=== PATIENT | male | born 1950 | race Caucasian/White ===

== ENCOUNTER 2016-07-12 07:36 | Emergency (ER) | payer OTHER ==
--- NOTE | 2016-07-12 07:45 | UC ---
Respiratory Complaint HPI - HPI Summary HPI Summary: Cough w/ yellow sputum & chest congestion x3 weeks. 3 days ago, pt developed slight fever. Not improving . [ End ] - History of Current Complaint Stated Complaint: COUGH,CHEST CONGESTION Time Seen by Provider: 07/12/16 07:43 Hx Obtained From: Patient Onset/Duration: Gradual Onset Timing: Constant Severity Initially: Mild Severity Currently: Moderate Character: Cough: Productive Aggravating Factors: Exertion Alleviating Factors: Nothing Associated Signs And Symptoms: Positive: Negative, Nasal Congestion, Sinus Discomfort - Risk Factors Pulmonary Embolism Risk Factors: Negative - Allergies/Home Medications Allergies/Adverse Reactions: Allergies Allergy/AdvReac Type Severity Reaction Status Date / Time No Known Allergies Allergy Verified 07/12/16 07:42 Home Medications: Home Medications guaiFENesin LIQ* [Robitussin*] 10 ml PO Q6H PRN 07/12/16 [History Confirmed 05/29] PMH/Surg Hx/FS Hx/Imm Hx Previously Healthy: Yes Endocrine History Of: Denies: Diabetes Cardiovascular History Of: Reports: Hypertension Denies: Cardiac Disorders Respiratory History Of: Denies: COPD GI/ History Of: Denies: Gastroesophageal Reflux - Surgical History Surgical History: Yes Surgery Procedure, Year, and Place: groin node removed 40 years ago d/t "cat scratch fever" - Family History Known Family History: Positive: None - Social History Occupation: Retired Lives: With Family Substance Use Type: None Smoking Status (MU): Never Smoked Tobacco Review of Systems Constitutional: Fever, Fatigue Skin: Negative Eyes: Negative ENT: Negative Respiratory: Cough Cardiovascular: Negative Gastrointestinal: Negative Genitourinary: Negative Motor: Negative Neurovascular: Negative Musculoskeletal: Negative Neurological: Negative Psychological: Negative All Other Systems Reviewed And Are Negative: Yes Physical Exam Triage Information Reviewed: Yes Appearance: Well-Appearing, No Pain Distress, Well-Nourished Eye Exam: Normal ENT Exam: Normal Dental Exam: Normal Neck exam: Normal Neck: Positive: 1 Respiratory Exam: Normal Cardiovascular Exam: Normal Abdominal Exam: Normal Musculoskeletal Exam: Normal Neurological Exam: Normal Psychological Exam: Normal Skin Exam: Normal Respiratory Course/Dx - Course Course Of Treatment: Viral, do not start antibiotics unless sx worsen over the next 3-4 days - Differential Dx/Diagnosis Differential Diagnosis/HQI/PQRI: Bronchitis, Lower Resp Infection, Sinusitis Provider Diagnoses: Bronchitis Discharge - Discharge Plan Condition: Good Disposition: HOME Prescriptions: Amoxicillin/Clavulanate TAB* [Augmentin TAB 875*] 875 mg PO BID #20 tab Benzonatate [Benzonatate 200 MG CAP] 200 mg PO TID #20 cap Fluticasone Propionate (Nasal) [Clarispray] 50 mcg NA DAILY #1 spr LevoCETirizine TAB (NF) [Xyzal TAB (NF)] 5 mg PO DAILY #14 tab Patient Education Materials: Acute Bronchitis (ED) Referrals: Evelyn Galan MD [Primary Care Provider] - 3 Days Additional Instructions: As we discussed please use the levoceterizine , benzonatate cough pills and allergy nose spray for 3-4 days and if your symptoms worsen then you may start the antibiotics. If you do start these please also start probiotics as well.
[2016-07-12 07:48] VITALS: BP 123/73
== END 2016-07-12 08:23 | disposition home or self-care (01) ==
LOC: UCCORT 07:36
DX: J40 Bronchitis, not specified as acute or chronic (principal); I10 Essential (primary) hypertension
CPT/HCPCS: 99212; G0463

== ENCOUNTER 2017-01-03 09:41 | Emergency (ER) | payer OTHER ==
[2017-01-03 10:13] VITALS: BP 129/64
[2017-01-03] MEDS ORDERED: predniSONE TAB* 20 MG PO ONE (10:28)
--- NOTE | 2017-01-03 10:35 | UC ---
Respiratory Complaint HPI - HPI Summary HPI Summary: Started getting sick about 2 weeks ago with nasal kristine, st, cough. Saw PCP 10 days ago and was rx z-dima. Finished it 4 days ago but cough and wheezing continue. Denies fever or facial pain. No hx of COPD or respiratory hispitalization. - History of Current Complaint Chief Complaint: UCGeneralIllness Stated Complaint: COUGH,WHEEZING (JUST FINISHED ZPACK) Time Seen by Provider: 01/03/17 10:06 Hx Obtained From: Patient Onset/Duration: Gradual Onset, Lasting Weeks Timing: Constant Severity Initially: Moderate Severity Currently: Mild Character: Cough: Productive Aggravating Factors: Recumbent Position Alleviating Factors: Upright Position Associated Signs And Symptoms: Positive: Wheezing, URI, Nasal Congestion. Negative: Dyspnea, Fever, Chills - Risk Factors Pulmonary Embolism Risk Factors: Negative - Allergies/Home Medications Allergies/Adverse Reactions: Allergies Allergy/AdvReac Type Severity Reaction Status Date / Time No Known Allergies Allergy Verified 01/03/17 10:12 Home Medications: Home Medications Aspirin [Aspirin 81 MG TAB] 81 mg PO DAILY 01/03/17 [History Confirmed 01/03/17] PMH/Surg Hx/FS Hx/Imm Hx Endocrine History: Dyslipidemia - Surgical History Surgical History: Yes Surgery Procedure, Year, and Place: groin node removed 40 years ago d/t "cat scratch fever" - Family History Known Family History: Positive: Hypertension - Social History Lives: With Family Alcohol Use: Occasionally Substance Use Type: None Smoking Status (MU): Never Smoked Tobacco Review of Systems Constitutional: Negative Skin: Negative Eyes: Negative ENT: Sore Throat, Nasal Discharge, Sinus Congestion Respiratory: Cough Cardiovascular: Negative Gastrointestinal: Negative Genitourinary: Negative Motor: Negative Neurovascular: Negative Musculoskeletal: Negative Neurological: Negative Psychological: Negative Is Patient Immunocompromised?: No All Other Systems Reviewed And Are Negative: Yes Physical Exam Triage Information Reviewed: Yes Appearance: Well-Appearing, No Pain Distress, Well-Nourished Vital Signs: Initial Vital Signs Temp 98.5 F 01/03/17 10:07 Pulse 68 01/03/17 10:07 Resp 22 01/03/17 10:07 BP 129/64 01/03/17 10:07 Pulse Ox 97 01/03/17 10:07 Vital Signs Reviewed: Yes Eye Exam: Normal, Other - PERRL Eyes: Positive: Conjunctiva Clear, Other: - pt has arcus senillus bilat ENT: Positive: Hearing grossly normal, Nasal congestion, TMs normal. Negative: Nasal drainage, Tonsillar swelling, Tonsillar exudate Dental Exam: Normal Neck exam: Normal Neck: Positive: Supple, Nontender, No Lymphadenopathy Respiratory: Positive: Lungs clear, Normal breath sounds, Decreased breath sounds - bilat. Negative: Wheezing Cardiovascular Exam: Normal Cardiovascular: Positive: RRR, No Murmur Musculoskeletal Exam: Normal Neurological Exam: Normal Neurological: Positive: Alert Psychological Exam: Normal Skin Exam: Normal Diagnostic Evaluation - Laboratory O2 Sat by Pulse Oximetry: 97 Respiratory Course/Dx - Differential Dx/Diagnosis Provider Diagnoses: Bronchospasm. post-viral cough Discharge - Discharge Plan Condition: Stable Disposition: HOME Prescriptions: Albuterol HFA INHALER* [Ventolin HFA Inhaler*] 1 - 2 puff INH Q4H PRN #1 mdi PRN Reason: wheeze, cough Fluticasone HFA 220 mcg(NF) [Flovent HFA 220 Mcg(NF)] 1 puff INH BID #1 mdi Patient Education Materials: Bronchospasm (ED) Referrals: Evelyn Galan MD [Primary Care Provider] - Additional Instructions: POST-VIRAL COUGH: A very common cause of persistent cough is called "post-viral cough syndrome." During a viral infection, the virus can irritate your bronchial tubes. Then even after the infection is over, you may continue to cough. Your cough is left over from your recent viral infection. You do not show evidence of a continuing viral infection,bronchitis or pneumonia. You do not need antibiotics at this time. It may be helpful to use inhaled cool mist, throat lozenges, cough medication or bronchial inhalers to open up your bronchial tubes. We expect you will be improved in a week or two. Please get back to us if you have fever, chest pain, colored sputum, blood in the sputum, wheezing or shortness of breath.
== END 2017-01-03 10:40 | disposition home or self-care (01) ==
LOC: UCCORT 09:41
DX: J98.01 Acute bronchospasm (principal)
CPT/HCPCS: 99212; G0463; J7512

== ENCOUNTER 2017-04-16 08:22 | Emergency (ER) | payer OTHER ==
[2017-04-16 08:40] VITALS: BP 150/92
--- NOTE | 2017-04-16 08:56 | UC ---
General HPI - HPI Summary HPI Summary: 66 yo gentleman c/o last several days L back / upper leg achiness. This am awoke with rash left lower pelvis. No sob / cp. No palpitations. No fever / chills. No sore throat. No or GI c/o's. Did have chicken pox as a child. - History of Current Complaint Chief Complaint: UCSkin Stated Complaint: SKIN COMPLAINT Time Seen by Provider: 04/16/17 08:45 Hx Obtained From: Patient - Allergy/Home Medications Allergies/Adverse Reactions: Allergies Allergy/AdvReac Type Severity Reaction Status Date / Time No Known Allergies Allergy Verified 04/16/17 08:40 Home Medications: Home Medications Multiple Vitamins W/ Minerals [Preservision Areds 2 + Mu] 1 cap PO DAILY [History Confirmed 04/16/17] PMH/Surg Hx/FS Hx/Imm Hx Previously Healthy: Yes - Surgical History Surgical History: Yes Surgery Procedure, Year, and Place: groin node removed 40 years ago d/t "cat scratch fever" - Family History Known Family History: Positive: Hypertension - Social History Alcohol Use: Occasionally Substance Use Type: None Smoking Status (MU): Never Smoked Tobacco Review of Systems Constitutional: Negative Skin: Rash Eyes: Negative ENT: Negative Respiratory: Negative Cardiovascular: Negative Gastrointestinal: Negative Genitourinary: Negative Motor: Other - see hpi Neurovascular: Other - see hpi Musculoskeletal: Arthralgia Neurological: Negative Psychological: Negative Is Patient Immunocompromised?: No All Other Systems Reviewed And Are Negative: Yes Physical Exam Triage Information Reviewed: Yes Appearance: Well-Appearing, Well-Nourished Vital Signs: Initial Vital Signs Temp 98.3 F 04/16/17 08:28 Pulse 66 04/16/17 08:28 Resp 18 04/16/17 08:28 BP 150/92 04/16/17 08:28 Vital Signs Reviewed: Yes Eye Exam: Normal - grossly normal, no c/o's ENT Exam: Normal ENT: Positive: Pharynx normal Neck exam: Normal Neck: Positive: Supple Respiratory Exam: Normal Respiratory: Positive: Chest non-tender, Lungs clear, Normal breath sounds, No respiratory distress, No accessory muscle use Cardiovascular Exam: Normal Cardiovascular: Positive: RRR, No Murmur, Brisk Capillary Refill Abdominal Exam: Normal Abdomen Description: Positive: Nontender Musculoskeletal Exam: Normal - gait steady, moves all 4 ext's Neurological Exam: Normal - generalized c/o as per hpi, o/w neuro grossly nonfocal Other than rash as below Psychological Exam: Normal - conversing easily and appropriately Skin Exam: Other - non-diaphoretic. L flank, low back, extending to L groin - vesicular lesion / rash highly suggestive of shingles. Course/Dx - Course Course Of Treatment: Reviewed coa / tx plan. No personal or household addiction hx. Aware of direct skin (rash) contact precaution with non- immunized or immunoincompetant individuals. Will f/u with Dr. Galan next week. Questions as posed answered to the best of my ability. - Differential Dx - Multi-Symptom Provider Diagnoses: Shingles Discharge - Discharge Plan Condition: Stable Disposition: HOME Prescriptions: ValACYclovir (*) [Valtrex 1 GM(*)] 1 gm PO TID #30 tab Patient Education Materials: Shingles (ED) Referrals: Evelyn Galan MD [Primary Care Provider] - Additional Instructions: Follow up with Dr. Galan next week for recheck. Seek medical attention for worse or new problems in the meantime.
[2017-04-16] MEDS ORDERED: HYDROcodone/ACETAMIN 5-325 MG* 1 TAB PO ONE (09:03)
== END 2017-04-16 09:16 | disposition home or self-care (01) ==
LOC: UCCORT 08:22
DX: B02.9 Zoster without complications (principal)
CPT/HCPCS: 99212; G0463

== ENCOUNTER 2018-06-01 10:15 | Day surgery (SDC) | payer MEDICARE, OTHER ==
[~2018-06-01 10:15] MED LIST: Acetaminophen TAB* 325 MG PO PRN; Buffered Lidocaine 1% SYRIN* 1 ML/SYRINGE INTRADERM ONE; Cyclopentolate 1% OPTH.SOL* 2 ML BTL ONE; Ketorolac 0.5% OPHTH (NF) 0.5 % 5 ML BTL ONE; Lidocaine 1%* 5 ML VIAL ONE; Lidocaine 2% EPI 1:200000 MPF*10-20 ML VIAL ONE; Neomycin/Polymy/Dex OPTH.SUSP* MAXITROL 0.1% 5 ML ONE; Phenylephrine 2.5% OPTH.SOL* 2 ML BTL ONE; Povidone Iodine 5% OPTH* 30 ML BTL ONE; Proparacaine 0.5% OPHTH.SOL* 15 ML BTL ONE; acetaZOLAMIDE TAB* 250 MG ONE
[2018-06-01] MEDS ORDERED: Midazolam* 1 MG/ML 2 ML VIAL (2 MG) ONE ×2 (12:41→13:05)
[2018-06-01 13:26] VITALS: BP 120/73
--- NOTE | 2018-06-01 15:21 | OP ---
OPERATIVE NOTE: DATE OF OPERATION: 06/01/18 DATE OF : 50 SURGEON: Mason Ojeda MD PREOPERATIVE DIAGNOSIS: Cataract, left eye. POSTOPERATIVE DIAGNOSIS: Cataract, left eye. OPERATIVE PROCEDURE: Extracapsular cataract extraction with intraocular lens implant left eye. PROCEDURE: The patient was brought to the operating room after being given 1/2% Alcaine with epineph rine drops in the preoperative area. The eye was prepped and draped in the usual sterile fashion. S terile drape and eyelid speculum were placed. Again, topical 1/2% Alcaine with epinephrine was given . A paracentesis incision was made at the 3 o'clock position with the No.75 blade. Clear cornea inc ision 2.2 x 2.2-mm was created at the 6 o'clock position starting at the anterior limbus using the 2. 2-mm keratome. The anterior chamber was irrigated with 0.4 mL of 1% non-preservative intracameral li docaine and filled with DisCoVisc. A capsulorrhexis was completed using the cystotome and the Utrata forceps. Hydrodissection was performed with balanced salt solution. The lens nucleus was removed wi th the Phacoemulsification handpiece without incident. Cortex was removed with the irrigation-aspira tion handpiece. The capsular bag was re-inflated using DisCoVisc and an [id number] implant was insert ed with the shooter. The irrigation-aspiration handpiece was used to remove all residual DisCoVisc. The eye was refilled with balanced salt solution and the wound checked and found to be watertight. Topical Maxitrol drops were given. [id number]/[facility] #: [id number]
== END 2018-06-01 13:34 | disposition home or self-care (01) ==
LOC: OREAST 10:15
PROVIDERS: ATTEND Specialist
DX: H25.812 Combined forms of age-related cataract, left eye (principal); H35.3131 Nonexudative age-related macular degeneration, bilateral, early dry stage; H02.132 Senile ectropion of right lower eyelid; H02.135 Senile ectropion of left lower eyelid; I10 Essential (primary) hypertension; K21.9 Gastro-esophageal reflux disease without esophagitis
CPT/HCPCS: A9270-GY; J2250; V2632